=== PATIENT | female | born 2000 | race Caucasian/White ===

== ENCOUNTER 2024-04-18 08:04 | Emergency (ER) | payer OTHER, SELFPAY ==
--- NOTE | 2024-04-18 08:10 | ED.URI ---
HPI - URI/Sore Throat General Chief Complaint: Upper Respiratory Infection Stated Complaint: Throat Time Seen by Provider: 04/18/24 08:50 Source: patient, RN notes reviewed and old records reviewed Mode of arrival: ambulatory Limitations: no limitations History of Present Illness HPI Narrative: 23 year old female who presents to [facility] care with complaints of sore throat since last night and has had tactile fever with chills and sweats. Patient reports that her children have been ill with fevers also, one with ear infection and one with pink eye diagnosis. Patient has not taken any OTC medications. Patient denies any ear pain, cough, nasal congestion or drainage or any body aches. MD elicited complaint: sore throat Pertinent past history: other (Tonsillectomy and Adenoidectomy) Onset (ago): day(s) (day 2 of symptoms) Pain scale (0-10): 4 Able to tolerate fluids by mouth: Yes Treatments prior to arrival: none Related Data Allergies Allergy/AdvReac Type Severity Reaction Status Date / Time amoxicillin Allergy Swelling Verified 04/18/24 08:44 Review of Systems Review of Systems: CONSTITUTIONAL: Reports malaise, chills, sweats, or fever. EYES: Denies visual changes, redness, or discharge. ENT: Reports no rhinorrhea, congestion, sinus pain, otalgia and positive for sore throat. CARDIOVASCULAR: Denies chest pain, palpitations, or edema. RESPIRATORY: Reports no cough.? Denies dyspnea. GASTROINTESTINAL: Denies abdominal pain, nausea, vomiting, diarrhea SKIN: Denies rash or itching. MUSCULOSKELETAL: Denies myalgia. NEUROLOGIC: Denies headache. All systems reviewed & are unremarkable except as noted in HPI and below [facility] Surgical History Surgical History (Updated 04/18/24 @ 08:53 by Yusra Perez NP) H/O tubal ligation History of placement of ear tubes History of tonsillectomy and adenoidectomy Social History Social History (Updated 04/18/24 @ 08:54 by Yusra Perez NP) Smoking status: Never smoker Alcohol intake: never Substance use: never Living arrangements: with family Gender identity (if verbalized by the patient): Female Comments At time of signature, agree with nursing past medical, surgical, social and family history. There is no relevant family history pertinent to the presenting complaint Exam Narrative: GENERAL: Well-appearing, well-nourished, and in no acute distress. HEAD: Normocephalic EYES: PERRLA, conjunctivae clear ENT: Nares clear, turbinates edematous and erythematous, clear discharge. Mucous membranes moist. TM pearly garcia with dull light reflex bilaterally; no tragal tenderness. Oropharynx erythematous without lesions. Tonsils not present and throat without exudate, no drooling, no hoarseness, no trismus, uvula midline.some post nasal drainage. NECK: Supple. No lymphadenopathy CHEST: Clear to auscultation, breath sounds equal. No wheezing, rhonchi, rales, or stridor. No respiratory distress, speaks in full sentences.no cough noted SAO2 100% on room air HEART: Regular rate and rhythm. No murmur heard. SKIN: Warm, dry, no rash. NEURO: Alert and oriented x3. PSYCH: Normal mood and affect Course Course Emergency Course: Patient is aware of diagnosis, understands and agrees to treatment plan.? Anticipatory guidance given.? Patient agrees to follow-up as directed and is aware of reasons to seek care at the emergency department. Portions of this record may have been created with voice recognition software Level of Care: Express Care Visit Vital Signs Vital signs: Vital Signs Temperature 36.6 C 04/18/24 08:45 Pulse Rate 98 04/18/24 08:45 Respiratory Rate 16 04/18/24 08:45 Blood Pressure 101/58 L 04/18/24 08:45 Pulse Oximetry 100 04/18/24 08:45 Oxygen Delivery Room Air 04/18/24 08:45 Temperature 36.6 C 04/18/24 08:45 Pulse Rate 98 04/18/24 08:45 Respiratory Rate 16 04/18/24 08:45 Blood Pressure 101/58
[2024-04-18 08:45] VITALS: BP 101/58; PULSE 98; RESP 16; TEMP 36.6; O2SAT 100
[2024-04-18 09:07] LABS: EDSTREPNEGPOS1 Negative (Negative)
== END 2024-04-18 09:27 | disposition home or self-care (01) ==
PROVIDERS: Emergency Provider Registered Nurse; PCP Family Medicine
DX: J02.0 Streptococcal pharyngitis (principal)
CPT/HCPCS: 87081; 87880; 99213; G0463

== ENCOUNTER 2025-01-08 16:49 | Emergency (ER) | payer OTHER, SELFPAY ==
[2025-01-08 16:58] VITALS: BP 123/63; PULSE 93; RESP 18; TEMP 36.9; O2SAT 100
--- NOTE | 2025-01-08 17:09 | ED_ITS ---
HPI - URI/Sore Throat General Chief Complaint: Upper Respiratory Infection Stated Complaint: throat Time Seen by Provider: 01/08/25 17:09 Source: patient Mode of arrival: ambulatory Limitations: no limitations History of Present Illness HPI Narrative: 24-year-old female presents with complaint sore throat, headache, fatigue for 2-3 days. Reports recent strep exposure. Afebrile. Denies nausea vomiting. All systems reviewed and negative except as noted above. Related Data Allergies Allergy/AdvReac Type Severity Reaction Status Date / Time amoxicillin Allergy Intermediate Hives Verified 01/08/25 17:03 progesterone Allergy Intermediate Hives Verified 01/08/25 17:03 sodium chloride for Allergy Intermediate Hives Verified 01/08/25 17:03 inhalation (From Saline) Review of Systems Review of Systems: CONSTITUTIONAL: Denies fever, chills, or sweats. EYES: Denies visual changes, redness, or discharge. ENT: Denies rhinorrhea, congestion . Reports sore throat. Denies otalgia. CARDIOVASCULAR: Denies chest pain, palpitations, or edema. RESPIRATORY: Denies cough or dyspnea. GASTROINTESTINAL: Denies abdominal pain, nausea, vomiting, or diarrhea. GENITOURINARY: Denies dysuria or hematuria. SKIN: Denies rash or itching. MUSCULOSKELETAL: Denies back pain, joint pain, or myalgia. NEUROLOGIC: Denies headache, numbness, or weakness. PSYCHIATRIC: Denies anxiety or depression. All other systems reviewed are negative, except as documented in HPI. PMFSH Surgical History Surgical History (Updated 04/18/24 @ 08:53 by Yusra Perez NP) History of placement of ear tubes H/O tubal ligation History of tonsillectomy and adenoidectomy Social History Social History (Updated 04/18/24 @ 08:54 by Yusra Perez NP) Smoking status: Never smoker Alcohol intake: never Substance use: never Living arrangements: with family Gender identity (if verbalized by the patient): Female Comments At time of signature, agree with nursing past medical, surgical, social and family history. There is no relevant family history pertinent to the presenting complaint. Exam Narrative: GENERAL: This is a well-nourished, well-developed patient, in no apparent distress. HEAD: normocephalic, atraumatic. EYES: PERRL. Sclera clear/white. Vision is grossly intact. EARS: External ears normal, auditory canals clear and without drainage, TMs normal without perforation. Hearing grossly intact. NOSE: External nose normal with no obvious nasal discharge, nares without redness, no rhinorrhea. THROAT: Mucous membranes moist, mild erythema without significant swelling or exudates. History of tonsillectomy NECK: Neck supple, non-tender without lymphadenopathy, masses or thyromegaly. CARDIOVASCULAR: Regular rate and rhythm without murmurs, gallops, or rubs. RESPIRATORY: Clear to auscultation. Breath sounds equal bilaterally. No wheezes, rales, or rhonchi. SKIN: warm, Dry, intact with no suspicious lesions or rash, good texture and turgor. NEURO: awake, alert, and oriented to person, place and time. There were no obvious focal neurologic abnormalities. EXTREMITIES: No joint tenderness, effusion, or edema noted. Course Course Level of Care: Express Care Visit Vital Signs Vital signs: Vital Signs Temperature 36.9 C 01/08/25 16:58 Pulse Rate 93 01/08/25 16:58 Respiratory Rate 18 01/08/25 16:58 Blood Pressure 123/63 01/08/25 16:58 Pulse Oximetry 100 01/08/25 16:58 Temperature 36.9 C 01/08/25 16:58 Pulse Rate 93 01/08/25 16:58 Respiratory Rate 18 01/08/25 16:58 Blood Pressure 123/63 01/08/25 16:58 Pulse Oximetry 100 01/08/25 16:58 reviewed MDM - URI/Sore Throat MDM Narrative Medical decision making narrative: negative rapid strep. Will treat patient with antibiotic for strep throat due to patient's symptoms and recent exposure. Patient agrees with plan of care. Patient is alert, nontoxic. Differential Diagnosis Differential diagnosis: Likely upper respiratory infection, sinusitis, viral infection, influenza and pharyngitis Discharge Plan Discharge Clinical Impression: Acute pharyngitis Patient Disposition: Home Condition: Stable Instructions: Antibiotic Form, Pharyngitis (ED) Additional Instructions: your strep test was negative today. Due to your symptoms and recent strep exposure, I am prescribing an antibiotic. take antibiotic as prescribed until gone. Change toothbrush after taking antibiotic for 24 hours. Take ibuprofen or Tylenol every 6-8 hours as needed for pain and fever. Patient Language: Citizen Of [place] Prescriptions: New azithromycin 250 mg tablet See Rx Instructions .ROUTE .COMPLEX Qty: 6 0RF Rx Instructions: For 250 mg dose pack: take 500 mg today (day 1), then 250 mg for 4 days (days 2-5) Follow-up/Referrals: Davion,Tere Ordaz MD [Primary Care Provider] - Time of Disposition: 17:19
[2025-01-08 17:26] LABS: EDSTREPNEGPOS1 Negative (Negative)
== END 2025-01-08 17:26 | disposition home or self-care (01) ==
PROVIDERS: Emergency Provider Nurse Practitioner Family; PCP Family Medicine
DX: J02.9 Acute pharyngitis, unspecified (principal)
CPT/HCPCS: 87880; 99213; G0463